=== PATIENT | male | born 1995 | race Caucasian/White ===

== ENCOUNTER 2017-01-07 13:24 | Emergency (ER) | payer OTHER ==
[2017-01-07 13:33] VITALS: RESP 18
[2017-01-07] MEDS ORDERED: NS 1,000 ML IV ONE ×4 (13:59→23:32)
[2017-01-07 14:02] LABS: % IMMATURE GRANULYOCYTES 0.4 % (0.0-1.1); ABSOLUTE IMMATURE GRANULOCYTES 0.05 10^3/uL (0.00-0.10); ADD DIFF? NO; ADD MORPH? NO; ADD SCAN? YES; FRAGMENT RBC FLAG 0 (0-99); HEMATOCRIT 45.8 % (40.0-51.0); HEMOGLOBIN 16.5 g/dL (13.7-17.5); LEFT SHIFT FLG 0 (0-99); LIPEMIA HEMOLYSIS FLAG 90 (0-99); MEAN CELL HEMOGLOBIN 29.9 pg (27.9-34.1); MEAN PLATELET VOLUME 9.7 fL (8.7-11.7); PLATELET CLUMPS FLAG 0 (0-99); PLATELET COUNT 257 10^3/uL (150-400); RED BLOOD CELL COUNT 5.52 10^6/uL (4.40-6.38); RED CELL DISTRIBUTION WIDTH 11.3 % (11.5-15.2)
[2017-01-07 14:08] LABS: ATYPICAL LYMPHOCYTE FLAG 110 (0-99)
[2017-01-07] MEDS ORDERED: ONDANSETRON 4 MG/2 ML VIAL IVP ONE (14:08)
[2017-01-07] MEDS ORDERED: KETOROLAC 30 MG/1 ML SDV IVP ONE (14:08)
--- NOTE | 2017-01-07 14:13 | UCPHY ---
H & P Patient Type: New Smoking Status: Never smoked Time Seen by Provider: 01/07/17 13:55 HPI/ROS: CHIEF COMPLAINT: Right upper quadrant abdominal pain HISTORY OF PRESENT ILLNESS: Patient is a 21-year-old previously healthy male who presents emergency department with right upper quadrant pain. His symptoms started last week with decreased appetite. On Sunday he was having increased pain with eating. His symptoms continued to progress and worsen. Yesterday he did not eat anything due to the pain. He has had nausea with multiple episodes of nonbloody emesis. No dysuria frequency. No flank pain. No radiation to his groin. The patient has reported a subjective fever and chills. REVIEW OF SYSTEMS: My complete review of systems is negative except as mentioned in the HPI. ( Priyanka Jhaveri) Past Medical/Surgical History: Negative Past surgical history: Negative Social history: The patient does not smoke (Priyanka Jhaveri) Physical Exam: 38, 142/66, 95, 18, 95% on room air. In the room the patient's heart rate was 121 GENERAL: Mild acute distress, alert. HEENT: Eyes normal to inspection, normal pharynx, mildly dry mucous membranes. NECK: No thyromegaly, no lymphadenopathy, supple. RESPIRATORY: Clear to auscultation bilaterally, no rales, rhonchi or wheezing. Chest wall: No rash. No tenderness palpation. CVS: Regular rate and rhythm, no rubs, murmurs, or gallops. ABDOMEN: Soft, nontender, nondistended, no organomegaly. Although the patient reports pain, he has no tenderness to palpation over his reported location. This is just under his right lower ribs. BACK: Normal to inspection, no CVA tenderness. SKIN: Normal color, no rash, warm, dry. No pallor. EXTREMITIES: No pedal edema, no calf tenderness, no Homans sign or cords, no joint swelling. NEURO/PSYCH: [Alert and oriented, normal mood and affect, normal motor sensory exam. (Priyanka Jhaveri) Constitutional: Initial Vital Signs Temperature (C) 38 C 01/07/17 13:30 Heart Rate 95 01/07/17 13:30 Respiratory Rate 18 01/07/17 13:30 Blood Pressure 142/66 H 01/07/17 13:30 O2 Sat (%) 95 01/07/17 13:30 O2 Delivery Mode Nasal Cannula O2 (L/minute) 2 Allergies/Adverse Reactions: No Known Allergies Allergy (Unverified 01/07/17 13:29) Home Medications: Medication Instructions Recorded Adderall 10 MG (*) 01/07/17 Valacyclovir HCl [Valtrex] 1,000 mg PO TID #21 tab 01/07/17 Medical Decision Making - Diagnostics Imaging: CT of the chest abdomen and pelvis with IV contrast. No evidence of pulmonary embolism. The lungs are clear. The liver and spleen appear enlarged. CT scan is otherwise unremarkable. Results were discussed with staff radiologist Dr. hSaw Pal. (Michlele Dickey) ED Course/Re-evaluation: In urgent care discussed possible etiologies with the patient. I answered all his questions. IV was placed. The patient was given 1 L of normal saline for hydration. He is given Toradol 30 mg IV for pain and fever. He is given morphine 4 mg IV for pain control. He was given Zofran 4 mg IV for nausea. Patient had laboratory studies, chest x-ray for his cough and pain, and CT scan ordered. The patient consented. I rechecked the patient after being given the medication and normal saline. He states he feels much better. His pain is stress echo improved. He still has no abdominal tenderness palpation on exam. Reviewed the patient's laboratory studies. He was noted to have an elevated anion gap of 21. His white count was elevated at 12. His bicarb was mildly low. His D-dimer was elevated 0.9. Because of the elevated D-dimer the chest x-ray was canceled. CT angiogram was ordered. I discussed this with the appliance technician. The patient also has a CT abdomen and pelvis with IV contrast pending. Patient was given a 3rd L of normal saline for hydration. Lactic acid was added. Blood cultures were ordered. 15 15: The patient is signed out to Dr. Michelle Dickey at change of shift. He is aware of the laboratory studies pending. He reviewed the imaging studies which are also pending. I discussed the plan with the patient answers questions prior to transfer care. (Priyanka Jhaveri) I took over care of this patient at 3:[address] chest abdomen and pelvis are pending at this time. Patient has an elevated D-dimer. The differential diagnosis includes pneumonia versus possible pulmonary embolism. He presented with cough and pain in the right upper quadrant and right subcostal area. 4:45 p.m., patient evaluated by myself. At this time is resting comfortably. He is still mildly tachycardic at 100-105. He is afebrile. He has had 2 doses of morphine at 4 mg per dose and 30 mg of IV Toradol. He has had 3 L of IV normal saline. He has not urinated. I discussed the results of his CT scans with him as well as the results of his laboratory studies. A mono test was ordered on him. I explained the only thing significantly found on his CT scans was some mild enlargement of his liver and spleen. Differential diagnosis does include ureterolithiasis. He states he is able to urinate for is now. Urinalysis will be obtained. Venous lactate is 0.7. Severe sepsis protocol will not be initiated. 5:15 p.m., patient re-evaluated. Resting comfortably at this time. On repeat examination of the patient oral aphthous ulcers were noted under the tongue, buccal mucosa, inner lips and right posterior pharynx. He reports he noticed this a couple of days ago. He reports they are painful. He has never had these types of ulcers before. Differential diagnosis includes herpangina, HSV, Coxsackie virus, HIV. Discussed testing him for HIV as well as HSV. He consented. The patient feels comfortable going home and I feel he is safe for discharge. Plan will be close follow-up with Infectious Disease for re- evaluation and further management tomorrow. 6:00 p.m., spoke with infectious disease specialist Dr. Ramirez of the [facility]. This patient's case was discussed with her in detail. She agrees with above management and testing. She advised we start the patient on valacyclovir. She has this patient's information and will get this patient in to be seen in her clinic tomorrow. The patient was given 1000 mg of valacyclovir in the emergency department. Plan for follow-up with Infectious Disease discussed with him for tomorrow. All of his questions were answered. 6:30 p.m., vital signs reviewed. He is resting comfortably at this time. Follow-up and return to emergency department precautions again reviewed. He was discharged in good condition with his girlfriend. He will be prescribed valacyclovir, ibuprofen and Vicodin for pain. (Michelle Dickey) Differential Diagnosis: My differential includes but is not limited to pneumonia, pneumothorax, empyema , pulmonary embolus, cholecystitis, cholangitis, pancreatitis, perforation, obstruction, appendicitis, urinary tract infection, influenza (Priyanka Jhaveri ) - Data Points Laboratory Results: Laboratory Results 01/07/17 13:53 01/07/17 13:53 01/07/17 01/07/17 01/07/17 Unknown 17:45 16:52 WBC RBC Hgb Hct MCV MCH MCHC RDW Plt Count MPV Neut % (Auto) Lymph % (Auto) [place] % (Auto) Eos % (Auto) Baso % (Auto) Nucleat RBC Rel Count Absolute Neuts (auto) Absolute Lymphs (auto) Absolute Monos (auto) Absolute Eos (auto) Absolute Basos (auto) Absolute Nucleated RBC Immature Gran % Immature Gran # D-Dimer VBG Lactic Acid Sodium Potassium Chloride Carbon Dioxide Anion Gap BUN Creatinine Estimated GFR Glucose Calcium Total Bilirubin AST ALT Alkaline Phosphatase Total Protein Albumin Lipase Urine Color YELLOW Urine Appearance CLEAR Urine pH 6.5 (5.0-7.5) Ur Specific [place] <= 1.005 (1.002-1.030) Urine Protein 1+ H (NEGATIVE) Urine Ketones 2+ H (NEGATIVE) Urine Blood NEGATIVE (NEGATIVE) Urine Nitrate NEGATIVE (NEGATIVE) Urine Bilirubin NEGATIVE (NEGATIVE) Urine Urobilinogen 0.2 EU EU (0.2-1.0) Ur Leukocyte Esterase NEGATIVE (NEGATIVE) Urine RBC NONE SEEN /hpf /hpf (0-3) Urine WBC 0-1 /hpf /hpf (0-3) Ur Epithelial Cells NONE SEEN /lpf /lpf (NONE-1+) Hyaline Casts 0-1 /lpf /lpf (0-1) Urine Mucus 2+ /lpf H /lpf (NONE-1+) Ur Culture Indicated? NOT INDICATED (NI) Urine Glucose NEGATIVE (NEGATIVE) Monoscreen Influenza Typ A,B (DFA) Group A Strep Screen NEGATIVE (NEGATIVE) Group A Strep DNA Pending 01/07/17 01/07/17 01/07/17 15:45 15:45 14:20 WBC RBC Hgb Hct MCV MCH MCHC RDW Plt Count MPV Neut % (Auto) Lymph % (Auto) [place] % (Auto) Eos % (Auto) Baso % (Auto) Nucleat RBC Rel Count Absolute Neuts (auto) Absolute Lymphs (auto) Absolute Monos (auto) Absolute Eos (auto) Absolute Basos (auto) Absolute Nucleated RBC Immature Gran % Immature Gran # D-Dimer VBG Lactic Acid 0.7 mmol/L mmol/L Cancelled (0.7-2.1) Sodium Potassium Chloride Carbon Dioxide Anion Gap BUN Creatinine Estimated GFR Glucose Calcium Total Bilirubin AST ALT Alkaline Phosphatase Total Protein Albumin Lipase Urine Color Urine Appearance Urine pH Ur Specific [place] Urine Protein Urine Ketones Urine Blood Urine Nitrate Urine Bilirubin Urine Urobilinogen Ur Leukocyte Esterase Urine RBC Urine WBC Ur Epithelial Cells Hyaline Casts Urine Mucus Ur Culture Indicated? Urine Glucose Monoscreen Influenza Typ A,B (DFA) NEGATIVE FOR FLU (NEGATIVE) Group A Strep Screen Group A Strep DNA 01/07/17 01/07/17 01/07/17 13:53 13:53 13:53 WBC RBC Hgb Hct MCV MCH MCHC RDW Plt Count MPV Neut % (Auto) Lymph % (Auto) [place] % (Auto) Eos % (Auto) Baso % (Auto) Nucleat RBC Rel Count Absolute Neuts (auto) Absolute Lymphs (auto) Absolute Monos (auto) Absolute Eos (auto) Absolute Basos (auto) Absolute Nucleated RBC Immature Gran % Immature Gran # D-Dimer 0.90 ug/mLFEU H ug/mLFEU (0.00-0.50) VBG Lactic Acid Sodium Potassium Chloride Carbon Dioxide Anion Gap BUN Creatinine Estimated GFR Glucose Calcium Total Bilirubin AST ALT Alkaline Phosphatase Total Protein Albumin Lipase 71.0 IU/L IU/L (23-300) Urine Color Urine Appearance Urine pH Ur Specific [place] Urine Protein Urine Ketones Urine Blood Urine Nitrate Urine Bilirubin Urine Urobilinogen Ur Leukocyte Esterase Urine RBC Urine WBC Ur Epithelial Cells Hyaline Casts Urine Mucus Ur Culture Indicated? Urine Glucose Monoscreen NEGATIVE (NEGATIVE) Influenza Typ A,B (DFA) Group A Strep Screen Group A Strep DNA 01/07/17 01/07/17 13:53 13:53 WBC 12.11 10^3/uL H 10^3/uL (3.80-9.50) RBC 5.52 10^6/uL 10^6/uL (4.40-6.38) Hgb 16.5 g/dL g/dL (13.7-17.5) Hct 45.8 % % (40.0-51.0) MCV 83.0 fL fL (81.5-99.8) MCH 29.9 pg pg (27.9-34.1) MCHC 36.0 g/dL g/dL (32.4-36.7) RDW 11.3 % L % (11.5-15.2) Plt Count 257 10^3/uL 10^3/uL (150-400) MPV 9.7 fL fL (8.7-11.7) Neut % (Auto) 72.0 % % (39.3-74.2) Lymph % (Auto) 13.3 % L % (15.0-45.0) [place] % (Auto) 14.0 % H % (4.5-13.0) Eos % (Auto) 0.0 % L % (0.6-7.6) Baso % (Auto) 0.3 % % (0.3-1.7) Nucleat RBC Rel Count 0.0 % % (0.0-0.2) Absolute Neuts (auto) 8.71 10^3/uL H 10^3/uL (1.70-6.50) Absolute Lymphs (auto) 1.61 10^3/uL 10^3/uL (1.00-3.00) Absolute Monos (auto) 1.70 10^3/uL H 10^3/uL (0.30-0.80) Absolute Eos (auto) 0.00 10^3/uL L 10^3/uL (0.03-0.40) Absolute Basos (auto) 0.04 10^3/uL 10^3/uL (0.02-0.10) Absolute Nucleated RBC 0.00 10^3/uL 10^3/uL (0-0.01) Immature Gran % 0.4 % % (0.0-1.1) Immature Gran # 0.05 10^3/uL 10^3/uL (0.00-0.10) D-Dimer VBG Lactic Acid Sodium 137 mEq/L mEq/L (134-144) Potassium 3.8 mEq/L mEq/L (3.5-5.2) Chloride 95 mEq/L L mEq/L (97-110) Carbon Dioxide 21 mEq/l L mEq/l (22-31) Anion Gap 21 mEq/L H mEq/L (8-16) BUN 11 mg/dL mg/dL (7-23) Creatinine 1.1 mg/dL mg/dL (0.7-1.3) Estimated GFR > 60 Glucose 106 mg/dL H mg/dL (70-100) Calcium 9.0 mg/dL mg/dL (8.5-10.4) Total Bilirubin 0.7 mg/dL mg/dL (0.1-1.4) AST 21 IU/L IU/L (17-59) ALT 28 IU/L IU/L (21-72) Alkaline Phosphatase 93 IU/L IU/L (38-126) Total Protein 7.9 g/dL g/dL (6.3-8.2) Albumin 3.7 g/dL g/dL (3.5-5.0) Lipase Urine Color Urine Appearance Urine pH Ur Specific [place] Urine Protein Urine Ketones Urine Blood Urine Nitrate Urine Bilirubin Urine Urobilinogen Ur Leukocyte Esterase Urine RBC Urine WBC Ur Epithelial Cells Hyaline Casts Urine Mucus Ur Culture Indicated? Urine Glucose Monoscreen Influenza Typ A,B (DFA) Group A Strep Screen Group A Strep DNA Medications Given: Discontinued Medications Sodium Chloride (Ns) 1,000 mls @ 0 mls/hr IV ONCE ONE PRN Reason: Wide Open Stop: 01/07/17 14:00 Last Admin: 01/07/17 14:00 Dose: 1,000 mls Sodium Chloride (Ns) 1,000 mls @ 0 mls/hr IV ONCE ONE PRN Reason: Wide Open Stop: 01/07/17 14:09 Last Admin: 01/07/17 14:36 Dose: 1,000 mls Sodium Chloride (Ns) 1,000 mls @ 0 mls/hr IV ONCE ONE PRN Reason: Wide Open Stop: 01/07/17 14:56 Last Admin: 01/07/17 15:57 Dose: 1,000 mls Ketorolac Tromethamine (Toradol) 30 mg IVP EDNOW ONE Stop: 01/07/17 14:09 Last Admin: 01/07/17 14:20 Dose: 30 mg Morphine Sulfate (Morphine) 4 mg IVP EDNOW ONE Stop: 01/07/17 14:09 Last Admin: 01/07/17 14:27 Dose: 4 mg Morphine Sulfate (Morphine) 4 mg IVP EDNOW ONE Stop: 01/07/17 15:58 Last Admin: 01/07/17 15:57 Dose: 4 mg Ondansetron HCl (Zofran) 4 mg IVP EDNOW ONE Stop: 01/07/17 14:09 Last Admin: 01/07/17 14:29 Dose: 4 mg Departure - Departure Disposition: Home, Routine, Self-Care Clinical Impression: Abdominal pain, Oral ulceration, Dehydration Fever Qualifiers: Fever type: unspecified Qualified Code(s): R50.9 - Fever, unspecified Condition: Good Instructions: Abdominal Pain (ED), Fever in Adults (ED) Additional Instructions: Read and follow provided instructions. Follow-up with [facility], infectious disease specialist, Dr. Ramirez or 1 of her partners on Sunday as discussed. They have your contact information and name. Call their office at 8:30 a.m. tomorrow morning for appointment time. Take medication as prescribed. Ibuprofen dosin mg every 6 hours with meals for the next 3 days only. [place]/Percocet dosin-2 every 4-[address] for [address] Do not drive on this medication. Return to the emergency department for worsening pain, high fever, vomiting or other serious concerns. Referrals: [facility] (ED,. [Edm Groups for Call Sched] - As per Instructions Pravin Ramirez MD [Medical Doctor] - As per Instructions Prescriptions: Valacyclovir HCl [Valtrex] 1,000 mg PO TID #21 tab - PQRS PQRS Measurement: NA (Priyanka Jhaveri)
[2017-01-07 14:16] LABS: ALANINE AMINOTRANSFERASE 28 IU/L (21-72); ALBUMIN 3.7 g/dL (3.5-5.0); ALKALINE PHOSPHATASE 93 IU/L (38-126); ANION GAP 21 mEq/L (8-16); ASPARTATE AMINOTRANSFERASE 21 IU/L (17-59); BILIRUBIN,TOTAL 0.7 mg/dL (0.1-1.4); CARBON DIOXIDE 21 mEq/l (22-31); CHLORIDE 95 mEq/L (97-110); CREATININE 1.1 mg/dL (0.7-1.3); GLOMERULAR FILTRATION RATE > 60; GLUCOSE 106 mg/dL (70-100); POTASSIUM 3.8 mEq/L (3.5-5.2); SODIUM 137 mEq/L (134-144); TOTAL PROTEIN 7.9 g/dL (6.3-8.2)
[2017-01-07 14:45] LABS: SCAN NEGATIVE
[2017-01-07] MEDS ORDERED: IOPAMIDOL (ISOVUE-370) 150 ML BTL IV ONE (14:48)
[2017-01-07 15:58] VITALS: TEMP 100
[2017-01-07 16:08] VITALS: BP 133/72; PULSE 108; O2SAT 95
[2017-01-07 17:05] LABS: COLOR YELLOW; LEUKOCYTE ESTERASE,URINE NEGATIVE (NEGATIVE); NITRITE,URINE NEGATIVE (NEGATIVE); PH,URINE 6.5 (5.0-7.5)
[2017-01-07 17:20] LABS: HYALINE CASTS 0-1 /lpf (0-1); MUCUS 2+ /lpf (NONE-1+); RBC,URINE NONE SEEN /hpf (0-3); WBC,URINE 0-1 /hpf (0-3)
[2017-01-07] MEDS ORDERED: valACYclovir 500 MG TAB PO ONE (18:23)
[2017-01-07] MEDS ORDERED: HYDROCOD/APAP 5/325 PREPACK#6 BTL TAKEHOME ONE (18:38)
[2017-01-07] MEDS ORDERED: ACYCLOVIR 400 MG PREPACK#4 BTL TAKEHOME ONE (18:42)
[2017-01-09 15:26] LABS: HIV-1 RNA PCR < 1.00 copy/mL (<20)
[2017-01-10 00:13] LABS: SPECIMEN SOURCE ORAL LESION
== END 2017-01-07 18:51 | disposition home or self-care (01) ==
LOC: CED 13:24
DX: R10.11 Right upper quadrant pain (principal); K12.0 Recurrent oral aphthae; E86.0 Dehydration; R50.9 Fever, unspecified; R16.2 Hepatomegaly with splenomegaly, not elsewhere classified
CPT/HCPCS: 71275-PO; 74177-PO; 80053-PO; 81003-PO; 81015-PO; 83605-PO; 83690-PO; 85025-PO; 85378-PO; 86308-PO; 87400-PO; 87529-90; 87536-90; 87880-PO; 96361-PO; 96374-PO; 96375-PO; 96376-PO; 99203-PO; G0463-PO; J1885; J2405; Q9967

== ENCOUNTER 2017-01-08 11:51 | Emergency (ER) | payer OTHER ==
[2017-01-08 13:48] LABS: % IMMATURE GRANULYOCYTES 0.6 % (0.0-1.1); ABSOLUTE IMMATURE GRANULOCYTES 0.06 10^3/uL (0.00-0.10); ADD DIFF? NO; ADD MORPH? NO; ADD SCAN? YES; FRAGMENT RBC FLAG 0 (0-99); HEMATOCRIT 43.9 % (40.0-51.0); HEMOGLOBIN 15.4 g/dL (13.7-17.5); LEFT SHIFT FLG 20 (0-99); LIPEMIA HEMOLYSIS FLAG 90 (0-99); MEAN CELL HEMOGLOBIN 30.8 pg (27.9-34.1); MEAN CELL HEMOGLOBIN CONCENTR. 35.1 g/dL (32.4-36.7); MEAN CELL VOLUME 87.8 fL (81.5-99.8); MEAN PLATELET VOLUME 9.8 fL (8.7-11.7); PLATELET CLUMPS FLAG 20 (0-99); PLATELET COUNT 212 10^3/uL (150-400); RED CELL DISTRIBUTION WIDTH 11.9 % (11.5-15.2)
[2017-01-08] MEDS ORDERED: NS 1,000 ML IV ONE (13:48)
[2017-01-08] MEDS ORDERED: HYDROmorphONE/DILAUDID 1 MG/ML SYR IVP ONE ×2 (13:48→14:41)
[2017-01-08] MEDS ORDERED: ONDANSETRON 4 MG/2 ML VIAL IVP ONE (13:48)
[2017-01-08] MEDS ORDERED: MAALOX/LIDO/HYOSC GI COCKTAIL 55 ML BOTTLE PO ONE (13:50)
[2017-01-08 13:51] LABS: ATYPICAL LYMPHOCYTE FLAG 110 (0-99)
[2017-01-08] MEDS ORDERED: ACYCLOVIR 400 MG TAB PO ONE (13:51)
--- NOTE | 2017-01-08 13:55 | EDPHY ---
H & P Stated Complaint: KYA Whipple pain-seen [facility] [place] 01/07 Time Seen by Provider: 01/08/17 13:38 HPI/ROS: CHIEF COMPLAINT: Right upper quadrant pain and sore throat and mouth sores HISTORY OF PRESENT ILLNESS: The patient is a 21-year-old healthy man who comes to the emergency department complaining of right upper quadrant pain, low-grade fever at home and sores in his mouth. He was seen yesterday at the urgent care. He had unremarkable lab work and a CT angio of his chest and a CT abdomen and pelvis that were all negative. His symptoms improved and he went home. He was noticed to have aphthous ulcers in his mouth and was prescribed acyclovir and had a follow-up appointment today with infectious disease doctor James. He skipped this appointment and came to the emergency department instead because he was having abdominal pain. He also has not yet filled his prescription for acyclovir. His dad is here with him today and states that he has not been able to eat since Sunday. It is painful to eat and swallow. He denies any history of HIV or risky sexual behavior. He denies any IV drug abuse or immuno compromising conditions. REVIEW OF SYSTEMS: Constitutional: denies: chills, fever, recent illness, recent injury EENTM: See HPI Respiratory: denies: cough, shortness of breath Cardiac: denies: chest pain, irregular heart rate, lightheadedness, palpitations Gastrointestinal/Abdominal: See HPI, denies: diarrhea, nausea, vomiting, blood streaked stools Genitourinary: denies: dysuria, frequency, hematuria, pain Musculoskeletal: denies: joint pain, muscle pain Skin: denies: lesions, rash, jaundice, bruising Neurological: denies: headache, numbness, paresthesia, tingling, dizziness, weakness Hematologic/Lymphatic: denies: blood clots, easy bleeding, easy bruising Immunologic/allergic: denies: HIV/AIDS, transplant EXAM: GENERAL: Well-appearing, well-nourished and in no acute distress. HEAD: Atraumatic, normocephalic. EYES: Pupils equal round and reactive to light, extraocular movements intact, sclera anicteric, conjunctiva are normal. ENT: TMs normal, nares patent, oropharynx with multiple aphthous ulcers over palate and gum lines as well as white Candidal infection over tongue. Moist mucous membranes. NECK: Normal range of motion, supple without lymphadenopathy or JVD. LUNGS: Breath sounds clear to auscultation bilaterally and equal. No wheezes rales or rhonchi. HEART: Regular rate and rhythm without murmurs, rubs or gallops. ABDOMEN: Soft, nontender, normoactive bowel sounds. No guarding, no rebound. No masses appreciated. BACK: No CVA tenderness, no spinal tenderness, step-offs or deformities EXTREMITIES: Normal range of motion, no pitting or edema. No clubbing or cyanosis. NEUROLOGICAL: Cranial nerves II through XII grossly intact. Normal speech, normal gait. 5/5 strength, normal movement in all extremities, normal sensation PSYCH: Normal mood, normal affect. SKIN: Warm, dry, normal turgor, no visible rashes or lesions. Source: Patient Exam Limitations: No limitations - Personal History Current Tetanus/Diphtheria Vaccine: Unsure - Medical/Surgical History Hx Asthma: No Hx Chronic Respiratory Disease: No Hx Diabetes: No Hx Cardiac Disease: No Hx Renal Disease: No Hx Cirrhosis: No Hx Alcoholism: No Hx HIV/AIDS: No Hx Splenectomy or Spleen Trauma: No Other PMH: ortho/ chest surg- for sternal. ADHD - adderall. - Family History Significant Family History: No pertinent family hx - Social History Smoking Status: Never smoked Alcohol Use: Sober Drug Use: None Constitutional: Initial Vital Signs Temperature (C) 37.2 C 01/08/17 12:16 Heart Rate 108 H 01/08/17 12:16 Respiratory Rate 16 01/08/17 12:16 Blood Pressure 109/71 01/08/17 12:16 O2 Sat (%) 95 01/08/17 12:16 O2 Delivery Mode Room Air Allergies/Adverse Reactions: No Known Allergies Allergy (Verified 01/08/17 12:19) Home Medications: Medication Instructions Recorded Adderall 10 MG (*) 01/07/17 Valacyclovir HCl [Valtrex] 1,000 mg PO TID #21 tab 01/07/17 AZITHROMYCIN [Z-PACK] 250 mg PO DAILY #4 tab 01/08/17 Fluconazole [Diflucan (*)] 150 mg PO DAILY #3 tab 01/08/17 oxyCODONE/APAP 5/325 [Percocet 1 - 2 tab PO Q4H PRN #20 tab 01/08/17 5/325 (*)] Medical Decision Making ED Course/Re-evaluation: 12:00 four p.m. I soumyab sided Dr. Thom Au who is here in the department. He agrees with the plan thus far and follow-up in their clinic. I will go ahead and treat him for strep which is positive today but was negative yesterday. He also recommends a rapid HIV test. 4:20 p.m. we discussed the lab results. The patient is reassured. I will start him on antibiotics for the strep throat. He is also on acyclovir nurse received the 1st dose here for what appears to be herpes stomatitis. I have also given him Diflucan for what appears to be thrush. he is also requesting steroids and pain medication for pain control. He states that it is very difficult to swallow anything even water. He does not have any stridor or respiratory distress. He will follow up tomorrow with Dr. Ramirez or Dr. Au. Differential Diagnosis: Partial list of the Differential diagnosis considered include but were not limited to; strep throat, thrush, herpes stomatitis, biliary disease and although unlikely based on the history and physical exam, I also considered PE, dissection, pneumonia, trauma. I discussed these differential diagnoses and the plan with the patient as well as the usual and expected course. The patient understands that the diagnosis is provisional and that in medicine we are not always correct and that further workup is often warranted. Usual and customary warnings were given. All of the patient's questions were answered. The patient was instructed to return to the emergency department should the symptoms at all worsen or return, otherwise to followup with the physician as we discussed. - Data Points Laboratory Results: Laboratory Results 01/08/17 13:35 01/08/17 13:35 01/08/17 01/08/17 01/08/17 13:35 13:35 13:35 WBC RBC Hgb Hct MCV MCH MCHC RDW Plt Count MPV Neut % (Auto) Lymph % (Auto) Cowley % (Auto) Eos % (Auto) Baso % (Auto) Nucleat RBC Rel Count Absolute Neuts (auto) Absolute Lymphs (auto) Absolute Monos (auto) Absolute Eos (auto) Absolute Basos (auto) Absolute Nucleated RBC Immature Gran % Seg Neutrophils % Band Neutrophils % Lymphocytes % Monocytes % Eosinophils % Basophils % Immature Gran # Absolute Seg Neuts Absolute Band Neuts Absolute Lymphocytes Absolute Monocytes Absolute Eosinophils Absolute Basophils RBC/WBC/PLT Morphology Atypical Lymphocytes Platelet Estimate Sodium 140 mEq/L mEq/L (134-144) Potassium 4.5 mEq/L mEq/L (3.5-5.2) Chloride 103 mEq/L mEq/L (97-110) Carbon Dioxide 23 mEq/l mEq/l (22-31) Anion Gap 14 mEq/L mEq/L (8-16) BUN 9 mg/dL mg/dL (7-23) Creatinine 0.8 mg/dL mg/dL (0.7-1.3) Estimated GFR > 60 Glucose 84 mg/dL mg/dL (70-100) Calcium 8.7 mg/dL mg/dL (8.5-10.4) Total Bilirubin 1.1 mg/dL D mg/dL (0.1-1.4) Conjugated Bilirubin 0.8 mg/dL H mg/dL (0.0-0.5) Unconjugated Bilirubin 0.3 mg/dL mg/dL (0.0-1.1) AST 35 IU/L IU/L (17-59) ALT 23 IU/L IU/L (21-72) Alkaline Phosphatase 72 IU/L IU/L (38-126) Total Protein 7.4 g/dL g/dL (6.3-8.2) Albumin 3.5 g/dL g/dL (3.5-5.0) Lipase 65.0 IU/L IU/L (23-300) Specimen Hemolysis 129 HIV 1&2 Antibody NEGATIVE (NEGATIVE) Group A Strep Screen POSITIVE H (NEGATIVE) 01/08/17 13:35 WBC 10.84 10^3/uL H 10^3/uL (3.80-9.50) RBC 5.00 10^6/uL 10^6/uL (4.40-6.38) Hgb 15.4 g/dL g/dL (13.7-17.5) Hct 43.9 % % (40.0-51.0) MCV 87.8 fL fL (81.5-99.8) MCH 30.8 pg pg (27.9-34.1) MCHC 35.1 g/dL g/dL (32.4-36.7) RDW 11.9 % % (11.5-15.2) Plt Count 212 10^3/uL 10^3/uL (150-400) MPV 9.8 fL fL (8.7-11.7) Neut % (Auto) 74.0 % % (39.3-74.2) Lymph % (Auto) 13.6 % L % (15.0-45.0) Cowley % (Auto) 10.6 % % (4.5-13.0) Eos % (Auto) 0.7 % % (0.6-7.6) Baso % (Auto) 0.5 % % (0.3-1.7) Nucleat RBC Rel Count 0.0 % % (0.0-0.2) Absolute Neuts (auto) 8.03 10^3/uL H 10^3/uL (1.70-6.50) Absolute Lymphs (auto) 1.47 10^3/uL 10^3/uL (1.00-3.00) Absolute Monos (auto) 1.15 10^3/uL H 10^3/uL (0.30-0.80) Absolute Eos (auto) 0.08 10^3/uL 10^3/uL (0.03-0.40) Absolute Basos (auto) 0.05 10^3/uL 10^3/uL (0.02-0.10) Absolute Nucleated RBC 0.00 10^3/uL 10^3/uL (0-0.01) Immature Gran % 0.6 % % (0.0-1.1) Seg Neutrophils % 39 % % Band Neutrophils % 37 % % Lymphocytes % 16 % % Monocytes % 6 % % Eosinophils % 1 % % Basophils % 1 % % Immature Gran # 0.06 10^3/uL 10^3/uL (0.00-0.10) Absolute Seg Neuts 4.23 10^/uL 10^/uL (1.70-6.50) Absolute Band Neuts 4.01 10^3/uL H 10^3/uL (0.00-0.70) Absolute Lymphocytes 1.73 10^3/uL 10^3/uL (1.00-3.00) Absolute Monocytes 0.65 10^3/uL 10^3/uL (0.30-0.80) Absolute Eosinophils 0.11 10^3/uL 10^3/uL (0.03-0.40) Absolute Basophils 0.11 10^3/uL H 10^3/uL (0.02-0.10) RBC/WBC/PLT Morphology NORMAL (NORMAL) Atypical Lymphocytes 1+ H Platelet Estimate ADEQUATE (ADEQ) Sodium Potassium Chloride Carbon Dioxide Anion Gap BUN Creatinine Estimated GFR Glucose Calcium Total Bilirubin Conjugated Bilirubin Unconjugated Bilirubin AST ALT Alkaline Phosphatase Total Protein Albumin Lipase Specimen Hemolysis HIV 1&2 Antibody Group A Strep Screen Medications Given: Discontinued Medications Acyclovir (Acyclovir) 800 mg PO EDNOW ONE Stop: 01/08/17 13:52 Last Admin: 01/08/17 14:35 Dose: 800 mg Azithromycin (Zithromax) 500 mg PO EDNOW ONE PRN Reason: Protocol Stop: 01/08/17 14:38 Last Admin: 01/08/17 14:47 Dose: 500 mg Dexamethasone (Decadron) 10 mg PO EDNOW ONE Stop: 01/08/17 16:22 Last Admin: 01/08/17 16:56 Dose: 10 mg Fluconazole (Diflucan Oral Liquid) 200 mg PO DAILY MIGUEL Stop: 02/07/17 13:59 Last Admin: 01/08/17 14:53 Dose: Not Given Fluconazole (Diflucan) 200 mg PO DAILY MIGUEL Stop: 02/07/17 14:29 Last Admin: 01/08/17 14:35 Dose: 200 mg Hydromorphone HCl (Dilaudid) 0.5 mg IVP EDNOW ONE Stop: 01/08/17 13:49 Last Admin: 01/08/17 14:00 Dose: 0.5 mg Hydromorphone HCl (Dilaudid) 1 mg IVP EDNOW ONE Stop: 01/08/17 14:42 Last Admin: 01/08/17 14:42 Dose: 1 mg Sodium Chloride (Ns) 1,000 mls @ 0 mls/hr IV ONCE ONE PRN Reason: Wide Open Stop: 01/08/17 13:49 Last Admin: 01/08/17 14:00 Dose: 1,000 mls Miscellaneous Medication (Gi Cocktail) 55 ml PO EDNOW ONE Stop: 01/08/17 13:51 Last Admin: 01/08/17 14:01 Dose: 55 ml Ondansetron HCl (Zofran) 4 mg IVP EDNOW ONE Stop: 01/08/17 13:49 Last Admin: 01/08/17 14:00 Dose: 4 mg Departure - Departure Disposition: Home, Routine, Self-Care Clinical Impression: Herpes stomatitis, Strep throat, Thrush of mouth and esophagus Abdominal pain Qualifiers: Abdominal location: right upper quadrant Qualified Code(s): R10.11 - Right upper quadrant pain Condition: Fair Instructions: Strep Throat (ED), Oral Candidiasis (ED), Gingivostomatitis (ED) Additional Instructions: Follow-up with Dr. Ramirez or Dr. Au tomorrow as discussed. They are aware of your Plan. Referrals: NAKUL SHORE MD [Other] - As per Instructions Pravin Ramirez MD [Medical Doctor] - As per Instructions Prescriptions: AZITHROMYCIN [Z-PACK] 250 mg PO DAILY #4 tab Fluconazole [Diflucan (*)] 150 mg PO DAILY #3 tab oxyCODONE/APAP 5/325 [Percocet 5/325 (*)] 1 - 2 tab PO Q4H PRN #20 tab PRN Reason: Pain, Severe
[2017-01-08] MEDS ORDERED: FLUCONAZOLE 40 MG/1 ML 35 ML BOTTLE PO SCH (14:00)
[2017-01-08 14:13] LABS: SCAN POSITIVE
[2017-01-08 14:19] LABS: PLATELET ESTIMATE ADEQUATE (ADEQ)
[2017-01-08 14:20] LABS: ANION GAP 14 mEq/L (8-16); CALCIUM 8.7 mg/dL (8.5-10.4); CARBON DIOXIDE 23 mEq/l (22-31); CHLORIDE 103 mEq/L (97-110); CREATININE 0.8 mg/dL (0.7-1.3); GLOMERULAR FILTRATION RATE > 60; GLUCOSE 84 mg/dL (70-100); POTASSIUM 4.5 mEq/L (3.5-5.2); SODIUM 140 mEq/L (134-144); SPECIMEN HEMOLYSIS 129
[2017-01-08] MEDS ORDERED: FLUCONAZOLE 100 MG TAB PO SCH (14:30)
[2017-01-08] MEDS ORDERED: AZITHROMYCIN 250 MG TAB PO ONE (14:37)
[2017-01-08] MEDS ORDERED: HYDROmorphONE/DILAUDID 1 MG/ML SYR ONE (14:39)
[2017-01-08 15:08] LABS: ALANINE AMINOTRANSFERASE 23 IU/L (21-72); ALBUMIN 3.5 g/dL (3.5-5.0); ALKALINE PHOSPHATASE 72 IU/L (38-126); ASPARTATE AMINOTRANSFERASE 35 IU/L (17-59); BILIRUBIN,TOTAL 1.1 mg/dL (0.1-1.4); BILIRUBIN-CONJUGATED 0.8 mg/dL (0.0-0.5); BILIRUBIN-UNCONJUGATED 0.3 mg/dL (0.0-1.1); TOTAL PROTEIN 7.4 g/dL (6.3-8.2)
[2017-01-08] MEDS ORDERED: DEXAMETHASONE 4 MG TAB PO ONE (16:21)
[2017-01-08 16:57] VITALS: BP 112/87; PULSE 89; RESP 18; TEMP 98.6; O2SAT 96
== END 2017-01-08 16:57 | disposition home or self-care (01) ==
DX: R10.11 Right upper quadrant pain (principal); B00.2 Herpesviral gingivostomatitis and pharyngotonsillitis; J02.0 Streptococcal pharyngitis; B37.0 Candidal stomatitis
CPT/HCPCS: 96374; J1170; J2405